=== PATIENT | male | born 1960 | race Caucasian/White ===

== ENCOUNTER 2017-07-16 16:08 | Emergency (ER) | payer OTHER ==
[~2017-07-16] VITALS: Ht 172.7 cm; Wt 72.6 kg
[2017-07-16] MEDS ORDERED: SODIUM CHLORIDE 0.9% 1,000 ML IVB ONE (16:42)
[2017-07-16 17:12] LABS: Basophils # (auto) 0.1 uL; Basophils % (auto) 0.9 % (0.0-2.0); Eosinophils # (auto) 0 uL; Eosinophils % (auto) 0.3 % (0.0-7.0); Hematocrit 46.5 % (41.0-53.0); Hemoglobin 15.5 g/dL (13.5-17.5); Lymphocytes # (auto) 0.9 uL; Lymphocytes % (auto) 11.9 % (10.0-50.0); Mean Corpuscular Hemoglobin 31.5 pg (28.0-32.0); Mean Corpuscular Hgb Conc. 33.3 g/dL (32.0-36.0); Mean Corpuscular Volume 94.4 fL (80.0-100.0); Monocytes # (auto) 0.5 uL; Monocytes % (auto) 7.3 % (0.0-12.0); Neutrophils # (auto) 5.8 uL; Neutrophils % (auto) 79.6 % (37.0-80.0); Platelet Count (auto) 279 10^3/uL (140-450); Red Blood Cells 4.93 10^6/uL (4.5-5.90); Red Cell Distribution Width 15.6 % (11.8-14.3); White Blood Cell 7.2 10^3/uL (4.4-10.8)
[2017-07-16] MEDS ORDERED: ONDANSETRON HCL 4 MG/2 ML VIAL IV ONE (17:15)
[2017-07-16 17:28] LABS: Albumin 3.3 g/dL (3.4-5.0); BUN/Creatinine Ratio 36.9; Bilirubin, Total 0.7 mg/dL (0.2-1.0); Calcium 9.3 mg/dL (8.5-10.1); Magnesium 2.4 mg/dL (1.6-2.6); Potassium 3.8 mmol/L (3.5-5.1); Total Protein 7.6 g/dL (6.4-8.2)
[2017-07-16] MEDS ORDERED: cefTRIAXone 1GM/10ml IVPUSH 10 ML IV ONE (18:30)
[2017-07-16 19:30] LABS: Lipase 60 U/L (73-393)
[2017-07-16 21:14] VITALS: BP 125/78
== END 2017-07-16 21:20 | disposition home or self-care (01) ==
LOC: ER 16:08 → EDBD 16:08 → ER 21:20
DX: R63.0 Anorexia (principal); R63.4 Abnormal weight loss; R07.89 Other chest pain; J18.1 Lobar pneumonia, unspecified organism; C15.9 Malignant neoplasm of esophagus, unspecified; F17.210 Nicotine dependence, cigarettes, uncomplicated
CPT/HCPCS: 36415; 71046; 80053; 83690; 83735; 84443; 84484; 85025; 87040; 96361; 96374; 96375; 99285; J2405; J7030; 93005

== ENCOUNTER 2017-08-22 11:25 | Emergency (ER) | payer OTHER ==
[~2017-08-22] VITALS: Ht 172.7 cm; Wt 59.4 kg
[2017-08-22 11:25] VITALS: BP 91/54
== END 2017-08-22 11:44 | disposition left against medical advice (07) ==
LOC: ER 11:25
DX: R06.02 Shortness of breath (principal); Z53.21 Procedure and treatment not carried out due to patient leaving prior to being seen by health care provider